=== PATIENT | female | born 1985 | race Caucasian/White ===

== ENCOUNTER 2021-05-19 09:49 | Emergency (ER) | payer OTHER ==
[2021-05-19 09:59] VITALS: BMI 26.4
[2021-05-19] MEDS ORDERED: ACETAMINOPHEN 325 MG TABLET (FP) PO ONE (10:55)
[2021-05-19] MEDS ORDERED: ACETAMINOPHEN 325 MG TABLET (FP) ONE (10:59)
[2021-05-19 13:06] LABS: BASO % 0.1 % (0-2.0); EOS % 0.2 % (0-4.5); HEMATOCRIT 34.6 % (32.4-45.2); HEMOGLOBIN 11.9 GM/dL (10.7-15.3); LYMPH % 10.1 % (8-40); MCH 30.6 pg (25.7-33.7); MCHC 34.4 g/dl (32.0-36.0); MEAN CELL VOLUME 89.1 fl (80-96); MEAN PLT VOLUME 9.8 fl (7.5-11.1); MONO % 7.3 % (3.8-10.2); NEUT % 82.3 % (42.8-82.8); PLATELET COUNT 156 10^3/uL (134-434); RBC 3.88 M/mm3 (3.60-5.2); RDW 13.2 % (11.6-15.6); WHITE BLOOD COUNT 9.4 K/mm3 (4.0-10.0)
[2021-05-19 13:14] LABS: INR 0.89 (0.83-1.09); PROTHROMBIN TIME (PATIENT) 10.8 SEC (9.7-13.0)
[2021-05-19 13:25] LABS: BLOOD UREA NITROGEN 4.9 mg/dL (7-18)
[2021-05-19 13:28] LABS: CREATININE 0.5 mg/dL (0.55-1.3)
[2021-05-19 13:29] LABS: BILIRUBIN,TOTAL 0.2 mg/dL (0.2-1)
[2021-05-19 13:30] LABS: TOT PROT 6.6 g/dl (6.4-8.2)
[2021-05-19] MEDS ORDERED: SODIUM CHLORIDE 1,000 ML IV ONE (15:22)
[2021-05-19] MEDS ORDERED: morphine CARPU-JECT 4 MG/1 ML DISP.SYRIN IVPUSH ONE (15:23)
[2021-05-19 15:24] VITALS: TEMP 98
[2021-05-19] MEDS ORDERED: morphine SULFATE 4 MG/ML VIAL ONE (15:25)
[2021-05-19 17:04] VITALS: BP 109/61; PULSE 104
== END 2021-05-19 17:04 | disposition short-term general hospital (02) ==
LOC: JER 09:49
PROC: 3E033GC Introduction of Other Therapeutic Substance into Peripheral Vein, Percutaneous Approach (ICD-10-PCS; principal; 2021-05-19)
DX: O9A.212 Injury, poisoning and certain other consequences of external causes complicating pregnancy, second trimester (principal); S13.160A Subluxation of C5/C6 cervical vertebrae, initial encounter; V49.40XA Driver injured in collision with unspecified motor vehicles in traffic accident, initial encounter; Z3A.22 22 weeks gestation of pregnancy
CPT/HCPCS: 36415; 70450-TC; 72125-TC; 73030-TC-LT-FY; 73110-TC-LT-FY; 80053; 85025; 85610; 86850; 86900; 86901; 93005; 93010; 99285-25; C9803; U0003; U0005